=== PATIENT | female | born 1985 | race Hispanic/Latino ===

== ENCOUNTER 2017-06-21 17:28 | Emergency (ER) | payer MEDICAID, OTHER ==
[2017-06-21] MEDS ORDERED: ONDANSETRON HCL MDV 20ML 2 MG/ML VIAL ONE (18:06)
[2017-06-21] MEDS ORDERED: KETOROLAC TROMETHAMINE 30MG/ML ONE (18:06)
[2017-06-21] MEDS ORDERED: SODIUM CHLORIDE 0.9% 1000ML 1,000 ML IV ONE (18:06)
[2017-06-21 18:09] LABS: BASOPHILS % (AUTO) 0.4 % (0.0-5.0); EOSINOPHILS % (AUTO) 0.1 % (0.0-8.0); HEMATOCRIT 32.7 % (36-48); LYMPHOCYTES % (AUTO) 18.5 % (21.0-51.0); MEAN CORPUSCULAR HEMOGLOBIN 24.4 pg (27.0-33.0); MEAN CORPUSCULAR HGB CONC 32.4 g/dL (32.0-36.0); MEAN CORPUSCULAR VOLUME 75.2 fL (79-99); MONOCYTES % (AUTO) 12.2 % (3.0-13.0); NEUTROPHILS % (AUTO) 68.8 % (40.0-77.0); PLATELET COUNT (AUTO) 288 K/uL (130-400); RED BLOOD CELL COUNT(AUTO) 4.34 MIL/uL (4.00-5.50); WHITE BLOOD COUNT (AUTO) 11.8 K/uL (4.8-10.8)
[2017-06-21 18:10] LABS: APPEARANCE,URINE Cloudy (CLEAR); BILIRUBIN,URINE Negative (NEGATIVE); COLOR,URINE Yellow (YELLOW); GLUCOSE, URINE (UA) Negative (NEGATIVE); KETONES,URINE Negative (NEGATIVE); LEUKOCYTE ESTERASE ,URINE Large (NEGATIVE); NITRATE,URINE Positive (NEGATIVE); OCCULT BLOOD,URINE Nonhemolyzed Trace (NEGATIVE); PROTEIN,URINE Trace (NEGATIVE)
[2017-06-21 18:20] LABS: BACTERIA,URINE Many /HPF (None Seen); RBC,URINE 0-1 /HPF (0-1)
[2017-06-21] MEDS ORDERED: CEFTRIAXONE SODIUM 1 GM ONE (18:26)
[2017-06-21 18:28] LABS: CREATININE 0.7 mg/dL (0.5-1.5); POTASSIUM 3.4 mmol/L (3.5-5.1)
== END 2017-06-21 21:25 | disposition home or self-care (01) ==
LOC: EDH 17:28
DX: R10.9 Unspecified abdominal pain (principal); R11.2 Nausea with vomiting, unspecified; R30.0 Dysuria; R50.9 Fever, unspecified; Z98.51 Tubal ligation status
CPT/HCPCS: 36415; 76770; 80048; 81001; 81025; 85025; 87088; 87186; 96374; 96375; 99285; J0696; J1885; J7030

== ENCOUNTER 2024-07-10 02:46 | Emergency (ER) | payer BC ==
[~2024-07-10] VITALS: Ht 154.9 cm; Wt 70.3 kg
[2024-07-10 03:23] LABS: APPEARANCE,URINE CLEAR (CLEAR); BILIRUBIN,URINE NEGATIVE (NEGATIVE); COLOR,URINE LIGHT-YELLOW (YELLOW); GLUCOSE, URINE (UA) NEGATIVE (NEGATIVE); KETONES,URINE NEGATIVE (NEGATIVE); LEUKOCYTE ESTERASE ,URINE NEGATIVE Leu/uL (NEGATIVE); NITRATE,URINE NEGATIVE (NEGATIVE); OCCULT BLOOD,URINE NEGATIVE (NEGATIVE); PH,URINE 7.5 (5.0-8.0); PROTEIN,URINE NEGATIVE (NEGATIVE); UROBILINOGEN,URINE 0.2 mg/dL (0.2-1.0)
[2024-07-10 03:24] LABS: ADD UA MICROSCOPIC NO
[2024-07-10 03:24] LABS: CREATININE 0.6 mg/dL (0.5-1.0); POTASSIUM 3.9 mmol/L (3.5-5.1)
[2024-07-10 03:25] LABS: BASOPHILS # (AUTO) 0.05 K/uL (0.00-0.20); BASOPHILS % (AUTO) 0.6 % (0.0-5.0); EOSINOPHILS # (AUTO) 0.12 K/uL (0.00-0.70); EOSINOPHILS % (AUTO) 1.4 % (0.0-8.0); HEMATOCRIT 35.9 % (36-48); IMMATURE GRANULOCYTE ABSOLUTE 0.02 K/uL (0-1); LYMPHOCYTES # (AUTO) 2.8 K/uL (1.0-4.8); MEAN CORPUSCULAR HEMOGLOBIN 28.3 pg (27.0-33.0); MEAN CORPUSCULAR VOLUME 88.2 fL (79-99); MONOCYTES # (AUTO) 0.9 K/uL (0.1-1.0); MONOCYTES % (AUTO) 10.7 % (3.0-13.0); NEUTROPHILS # (AUTO) 4.6 K/uL (1.8-7.7); NEUTROPHILS % (AUTO) 54.1 % (40.0-77.0); PLATELET COUNT (AUTO) 263 K/uL (130-400); RED BLOOD CELL COUNT(AUTO) 4.07 MIL/uL (4.00-5.50); RED CELL DISTRIBUTION WIDTH 13.8 % (11.0-15.5); WHITE BLOOD COUNT (AUTO) 8.5 K/uL (4.8-10.8)
--- NOTE | 2024-07-10 04:07 | ERN ---
ED Note History of Present Illness Stated Complaint: FEVER, BACK PAIN Chief Complaint: Multiple Complaints Time Seen by MD: 02:59 Dictation: This is a 38-year-old obese female who presented to the emergency room complaining of low back pain and gluteal pain. This has been going on for more than week to 10 days and she also reported some suprapubic pain with burning micturition. She reported that she had fevers on Wednesday up to 99.9 and 100. 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 She took Tylenol at 9:00 p.m. she also took tramadol. Apparently she had some amoxicillin from [place] which she took for a possible UTI. No bladder or bowel incontinence. She is able to ambulate without any issues no weakness. 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 job Allergies: Coded Allergies: No Known Drug Allergies (Verified Allergy, 03/13/13) Past Medical History Past Medical History: Kidney Stone, UTI, Other Additional Past Medical Hx: SCIATIC Surgical History: Other, BTL Surgical History Other: TUMMY TUCK Family History: Negative Social History: Negative LMP: Jun 27, 2024 RN Note Reviewed/Agreed w/PFSH: Yes Review of System Dictation Constitutional: Negative for fever,chills, and weight loss Eyes: Negative for injury, pain,redness, and discharge ENT: Negative for injury,pain or swelling Cardiovascular: Negative for chest pain, palpitations, and edema Respiratory: Negative for shortness of breath, cough, and wheezing, Abdomen/GI: Negative for abdominal pain, nausea, vomiting, diarrhea, and constipation Back: Negative for injury and positive for pain in the lower lumbosacral area : Negative for injury, bleeding and discharge MS/Extremity: Negative for injury and deformity Skin: Negative for rash, and discoloration Neuro: Negative for headache, weakness, numbness, tingling, and seizure Psych: Negative for suicide ideation, homicidal ideation, and hallucinations Initial Vital Sign VS Vital Signs Date Time Temp Pulse Resp B/P (MAP) Pulse Ox O2 Delivery O2 Flow Rate FiO2 5/12/25 02:48 98.8 92 16 126/81 99 Room Air 07/10/24 03:03 0 21 Physical Exam Dictation General: awake, alert, NAD anxious Head/Face: Normocephalic, atraumatic Eyes: PERRL, EOMI, vision at baseline ENT: oral cavity clear, TMs clear, no signs of infection Neck: Trachea midline, supple, no nuchal rigidity Cardiovascular: RRR, normal S1/S2, No MRGs, no JVD Respiratory: CTAB, no respiratory distress, No rales or wheezes Abdomen: Soft, non-tender, non-distended, normal bowel sounds, no guarding or rebound. Skin: Warm, dry, normal turgor, no rash MS/Extremity: Pulses equal, no cyanosis, neurovascular intact, FROM Neuro: COAx4, GCS 15, strength 5/5, CN 2-12 intact, normal cerebellar exam, normal gait, Psych: Normal behavior, mood, and affect normal Extremities-trace edema without any palpable cords, Homans sign is negative Results (Laboratory/Radiology) Laboratory/Radiology Laboratory Tests Test 07/10/24 02:57 07/10/24 03:10 Urine Color LIGHT-YELLOW (YELLOW) Urine Appearance CLEAR (CLEAR) Urine pH 7.5 (5.0-8.0) Urine Specific [place] 1.016 (1.001-1.031) Urine Protein NEGATIVE mg/dL (NEGATIVE) Urine Glucose (UA) NEGATIVE mg/dL (NEGATIVE) Urine Ketones NEGATIVE mg/dL (NEGATIVE) Urine Occult Blood NEGATIVE (NEGATIVE) Urine Nitrate NEGATIVE (NEGATIVE) Urine Bilirubin NEGATIVE mg/dL (NEGATIVE) Urine Urobilinogen 0.2 mg/dL (0.2-1.0) Urine Leukocyte Esterase NEGATIVE Derek/uL Serum Test, Qualitative NEGATIVE (NEGATIVE) White Blood Count 8.5 K/uL (4.8-10.8) Red Blood Count 4.07 MIL/uL (4.00-5.50) Hemoglobin 11.5 g/dL (12.0-16.0) L Hematocrit 35.9 % (36-48) L Mean Corpuscular Volume 88.2 fL (79-99) Mean Corpuscular Hemoglobin 28.3 pg (27.0-33.0) Mean Corpuscular Hemoglobin Concent 32.0 g/dL (32.0-36.0) Red Cell Distribution Width 13.8 % (11.0-15.5) Platelet Count 263 K/uL (130-400) Mean Platelet Volume 9.7 fL (7.5-10.5) Immature Granulocyte % (Auto) 0.2 % (0-1) Neutrophils (%) (Auto) 54.1 % (40.0-77.0) Lymphocytes (%) (Auto) 33.0 % (21.0-51.0) Monocytes (%) (Auto) 10.7 % (3.0-13.0) Eosinophils (%) (Auto) 1.4 % (0.0-8.0) Basophils (%) (Auto) 0.6 % (0.0-5.0) Neutrophils # (Auto) 4.6 K/uL (1.8-7.7) Lymphocytes # (Auto) 2.8 K/uL (1.0-4.8) Monocytes # (Auto) 0.9 K/uL (0.1-1.0) Eosinophils # (Auto) 0.12 K/uL (0.00-0.70) Basophils # (Auto) 0.05 K/uL (0.00-0.20) Absolute Immature Granulocyte (auto 0.02 K/uL (0-1) Nucleated Red Blood Cells 0.0 % (0.0-0.19) Sodium Level 136 mmol/L (136-145) Potassium Level 3.9 mmol/L (3.5-5.1) Chloride Level 103 mmol/L (101-111) Carbon Dioxide Level 29 mmol/L (21-32) Blood Urea Nitrogen 8 mg/dL (7-18) Creatinine 0.6 mg/dL (0.5-1.0) Glomerular Filtration Rate Calc 118 mL/min (>90) Random Glucose 87 mg/dL (70-105) Total Calcium 8.3 mg/dL (8.5-10.1) L Labs Reviewed?: Yes ED Course ED Course Orders Procedure Category Date Status Time Cbc With Differential LAB 07/10/24 Complete 03:01 Basic Metabolic Panel LAB 07/10/24 Complete 03:01 Testing, LAB 07/10/24 Complete Serum Hcg 03:01 Urinalysis Profile LAB 07/10/24 Complete 03:01 Ketorolac PHA 07/10/24 Complete Tromethamine 30mg/Ml 04:30 Cyclobenzaprine Hcl PHA 07/10/24 Complete (Cyclobenzaprine Hcl 04:30 Ct Lumbar Spine W/O CT 07/10/24 Taken Contrast 05:05 Current Medications Medications (Trade) Dose Ordered Sig/Sam Route PRN Reason Start Time Stop Time Status Last Admin Dose Admin Cyclobenzaprine HCl (Cyclobenzaprine HCl) 10 mg ONCE ONCE PO 07/10/24 04:30 07/10/24 04:31 DC 07/10/24 04:32 Ketorolac Tromethamine (toRADol) 30 mg ONCE ONCE IM 07/10/24 04:30 07/10/24 04:31 DC 07/10/24 04:32 Vital Signs Date Time Temp Pulse Resp B/P (MAP) Pulse Ox O2 Delivery O2 Flow Rate FiO2 07/10/24 04:40 98.2 94 20 134/87 99 Room Air* 0 21 07/10/24 03:03 100.0 89 19 120/79 99 Room Air* 0 21 07/10/24 02:48 98.8 92 16 126/81 99 Room Air We will perform diagnostic labs, advanced imaging and administer medications according to the patient's complaint. Once the results are available, will review and personally interpreted the labs to rule out any acute life-threaten ing emergency the trach require immediate intervention and treatment. I will then re-evaluate the patient after treatment and diagnostic exams have return to determine whether the patient requires any further testing, can safely be discharged home or need further admission to hospital for additional treatment and evaluation. Labs were unremarkable CBC negative test was negative urinalysis was unremarkable And patient was extremely anxious and in discomfort complaining that she was feeling tingling and numbness as she might have Guillain-Abiquiu syndrome. I tried to reassure her and explained to her that it most likely is related to her lumbar spine, body habitus sedentary job And requested a CT scan of the lumbar spine. This showed bilateral moderate foraminal stenosis at L5-S1 level. I explained to the patient and updated her on the CT scan findings and recommended that she go see a account development specialist or a neurosurgeon for possible epidural injections or pain management Medical Decision Making MDM MDM: Differential diagnosis: Lumbar radiculopathy bilateral, cauda equina syndrome, degenerative arthritis, herniated vertigo intervertebral discs, foraminal stenosis Rationale: Tests considered and ordered secondary to shared decision making include: Previous outside records reviewed: Old ER visits. Risk of complication and/or morbidity or mortality of patient management: None Medications-Per medication reconciliation Need for hospitalization: Patient does not meet criteria for hospitalization. Need for emergency major/minor surgery: No There are no social concerns with this patient. Prescription drug management Prescriptions will include symptomatic care Patient's prior external medical records from other ER visits were reviewed by me as indicated. Prior testing and results from previous visits were reviewed. Prior tests were taken into account with medical decision making and resource utilization, independent historian/historians were used to obtain complete medical history. I independently interpreted the test that were performed, results were reviewed by me and considered findings on radiology if ordered. Medical management and examination interpretation discussions were had by me with other qualified healthcare professionals as indicated for the patient's care. Problem List Problem List: (1) Neuroforaminal stenosis of lumbar spine (2) Low back pain (3) Lumbago DX & DISP Disposition: Discharge Departure Impression: Primary Impression: Low back pain Additional Impressions: Lumbago, Neuroforaminal stenosis of lumbar spine Condition: Stable Scripts Cyclobenzaprine HCl (Cyclobenzaprine HCl) 5 Mg Tablet 1 TAB PO TIDP PRN for muscle spasms for 10 Days, #30 TAB 0 Refills Prov: REUBEN BANG MD 07/10/24 Ketorolac Tromethamine (Toradol) 10 Mg Tab 10 MG PO TID for pain for 5 Days, #15 TAB 0 Refills Prov: REUBEN BANG MD 07/10/24 Additional Instructions: Patient and the caregiver have been informed of all the diagnostic tests and the imaging conducted during the today's visit to the emergency room and has verbalized understanding of the results I have personally reviewed and interpreted all diagnostic exams performed here in the ER today as well as the vital signs documented by the nursing staff. The patient is now being discharged to home and should follow up with the primary care physician or the specialist as directed by the ER staff. Follow-up with primary care provider in 1 to 2 days. Take medications as directed here in the emergency room. Okay to continue home medications unless otherwise discussed during your visit in the emergency room today. Return to your nearest emergency room if symptoms worsen or if there is no improvement. Call 911 if you need immediate assistance. Take Tylenol or Motrin over-the- counter as needed and if no contraindications are present. Increase oral hydration. A wound culture or urine culture was ordered here in the emergency room department please follow-up with primary care provider and advise them to get repeat ports from our facility. If you had any Shamir wrap/splints that were applied here, please do not remove them until you see your primary care or specialty. Referrals: SELF,REFERRAL (PCP) REUBEN BANG MD July 10, 2024 04:07
[2024-07-10] MEDS: ketOROlac 30MG VIAL (30MG/ML) IM ONE (04:32)
[2024-07-10] MEDS: CYCLOBENZAPRINE HCL 10 MG TABLET PO ONE (04:32)
[2024-07-10] MEDS ORDERED: KETO10 PO (06:49)
[2024-07-10] MEDS ORDERED: CYCL5TAB3 PO (06:49)
[2024-07-10 06:55] VITALS: BP 121/69; PULSE 94; RESP 18; TEMP 98.1; O2SAT 99
--- NOTE | 2024-07-10 08:57 | HMCIMG ---
Exam Type: CT LUMBAR SPINE W/O CONTRAST Clinical Information: lower back pain Comparison: None Technique: Spiral axial images were performed from T12 to the sacral level. Both sagittal and coronal reconstructions were performed. CT Dose Index (CTDI): 59.14 mGy Dose Length Product (DLP): 1953.1 total Findings: There is normal alignment of the vertebral bodies. There are no fractures. No facet hypertrophy. The prevertebral soft tissues are normal. IMPRESSION: NORMAL LUMBAR SPINE CT.
== END 2024-07-10 07:01 | disposition home or self-care (01) ==
LOC: EDH 02:46
DX: M54.50 Low back pain, unspecified (principal); M48.061 Spinal stenosis, lumbar region without neurogenic claudication; Z98.51 Tubal ligation status
CPT/HCPCS: 99284; 72131; 80048; 84703; 85025; 81003; 36415; 96372; J1885